=== PATIENT | male | born 1985 | race Native Hawaiian/Other Pacific Islander ===

== ENCOUNTER 2016-10-24 21:37 | Emergency (ER) | payer OTHER ==
[~2016-10-24] VITALS: Ht 177.8 cm; Wt 81.6 kg
[2016-10-24 22:35] VITALS: BP 156/87; TEMP 98.1
== END 2016-10-24 22:36 | disposition home or self-care (01) ==
LOC: ED 21:37
PROC: 0HQ0XZZ Repair Scalp Skin, External Approach (ICD-10-PCS; principal; 2016-10-24)
DX: S01.01XA Laceration without foreign body of scalp, initial encounter (principal); S00.81XA Abrasion of other part of head, initial encounter; W18.2XXA Fall in (into) shower or empty bathtub, initial encounter; Y92.098 Other place in other non-institutional residence as the place of occurrence of the external cause
CPT/HCPCS: 99281

== ENCOUNTER 2018-04-21 07:25 | Emergency (ER) | payer OTHER ==
[~2018-04-21] VITALS: Ht 177.8 cm; Wt 83.9 kg
[2018-04-21 07:35] VITALS: TEMP 98.2
[2018-04-21 08:02] LABS: PLATELET COUNT 197 K/uL (142-355)
[2018-04-21 08:11] LABS: POTASSIUM 4.5 mmol/L (3.6-5.2)
[2018-04-21 13:15] VITALS: BP 121/82
== END 2018-04-21 13:15 | disposition home or self-care (01) ==
LOC: ED 07:25
PROVIDERS: Internal Medicine
DX: N45.1 Epididymitis (principal)
CPT/HCPCS: 36415; 80053; 81000; 85027; 87490; 87590; 99283; Q9963